=== PATIENT | female | born 1995 | race Caucasian/White ===

== ENCOUNTER 2017-03-03 23:50 | Inpatient (IN) | payer OTHER ==
[~2017-03-03] VITALS: Ht 170.2 cm; Wt 128.3 kg
[~2017-03-03 23:50] MED LIST: PREN-29 PO
[2017-03-03 23:59] VITALS: BP 132/76; PULSE 104; RESP 18
[2017-03-04 00:02] VITALS: Ht 170.2 cm; Wt 128.3 kg
--- NOTE | 2017-03-04 01:00 | RADRPT ---
PROCEDURE: US biophysical profile. CLINICAL INDICATION: Decreased motion. TECHNIQUE: Multiple sonographic images of the uterus were obtained. The images were revi ewed on a PACS workstation. COMPARISON: No prior studies are available for comparison. FINDINGS: There is a single live intrauterine gestation. heart rate is 143 beats per minute. The position is cephalic. The placenta is posterior grade II with no abruption or previa. The JUDI is 11.3 cm. (Normal = 5-20 cm.) Breathing Movement: 2 Gross Body Movement: 2 Tone: 2 Qualitative Amniotic Fluid Volume: 2 TOTAL: 8 IMPRESSION: 1. The biophysical score is 8/8. RPTAT: QQ .Bernabe Wall MD, MD Date Time Electronically viewed and signed by .Bernabe Wall MD, on 03/04/2017 00:59 .R/
[2017-03-04] MEDS ORDERED: OXYTOCIN 30 UNITS/LR 500 ML IV PRN (02:00)
[2017-03-04] MEDS ORDERED: METHYLERGONOVINE 0.2 MG INJ IM PRN (02:00)
[2017-03-04] MEDS ORDERED: LIDOCAINE 1% (MPF) 30 ML INJ INJ PRN (02:00)
[2017-03-04] MEDS ORDERED: LACTATED RINGER'S 1,000 ML IV PRN (02:00)
[2017-03-04] MEDS ORDERED: IBUPROFEN 600 MG TAB PO PRN (02:00)
[2017-03-04] MEDS ORDERED: MISOPROSTOL 200 MCG TAB PR PRN (02:00)
[2017-03-04] MEDS ORDERED: OXYTOCIN 30 UNITS/LR 500 ML IV SCH ×3 (02:00)
[2017-03-04] MEDS ORDERED: BUTORPHANOL 2 MG INJ IV PRN ×2 (02:00)
[2017-03-04] MEDS ORDERED: CARBOPROST 250 MCG INJ IM PRN (02:00)
--- NOTE | 2017-03-04 02:04 | TRIAGE ---
OB Triage Datetime Report Generated by CPN: 03/04/2017 02:04 Datetime: 03/04/2017 01:32 Vaginal Exam Dilatation (cms): 2.0 Effacement (%): 50 Station: -3 Exam By: DR REICHE Datetime: 03/04/2017 01:00 Labor Evaluation Frequency: none Monitor Mode: External Resting Tone [place]: Relaxed Heart Rate FHR Baseline Rate: 145 Monitor Mode: External US FHR Baseline Changes: No Baseline Change Variability: Moderate 6-25 bpm Accelerations: 15X15 Decelerations: None Category: Category I Pain Assessment Pain Scale: 0 Pain Presence: None/Denies Pain Type: N/A Datetime: 03/04/2017 00:26 Stage of : OB Triage Datetime: 03/04/2017 00:08 Assessment Type: Triage Maternal Assessment Level of Consciousness: Fully Conscious DTR's/Clonus: DTRs 2+; No Clonus Headache: Denies Blurred Vision: No Respiratory Effort: Unlabored; Regular Rhythm; Equal Expansion Breath Sounds, Left: Clear and Equal Breath Sounds, Right: Clear and Equal Nausea/Vomiting: Denies RUQ Epigastric Pain: Denies Facial Edema: None Fall Risk Assessment History of Falling: (0) No Secondary Diagnosis: (0) No Ambulatory Aid: (0) Bedrest/Nurse Assist IV Therapy: (0) No Gait: (0) Normal/Bedrest/Immobile Mental Status: (0) Oriented to Own Ability Fall Score: 0 Fall Risk Score Definition: No Risk: No action required Comment: PRESENTED TO TRIAGE C_O DEC.FM. LOW BP AND DIZZINESS. DENIES LEAKING, BLEEDING. PLACED ON EFM. CALL LIGHT WITHIN REACH. Datetime: 03/04/2017 00:06 Time of Arrival: 03/04/2017 23:55 EGA: 39.5 Arrived By: Ambulatory Arrived From: Home Chief Complaint: DECREASED MOVEMENT,LOW BP, DIZZINESS Movement: Decreased Contractions: Denies/Absent Rupture of Membranes: Denies Vaginal Bleeding: None Vaginal Discharge: Denies Recent Sexual Intercouse: Denies Abdominal Trauma: Not Applicable Patient Complaints: None Time Provider Notified: 03/04/2017 00:20 Provider Notified: Initial Plan: EFM, VS, ultrasound for BPP, JUDI if WNL d_c to home Datetime: 03/04/2017 00:04 Membrane Status: Intact Datetime: 03/03/2017 23:56 Labor Evaluation Frequency: NONE Pattern: Normal: <= 5 Contractions in 10 Minutes Resting Tone [place]: Relaxed Heart Rate FHR Baseline Rate: 155 Monitor Mode: External US Comments: PLACED ON EFM
--- NOTE | 2017-03-04 02:14 | HP ---
Date/Time of Note Date/Time of Note DATE: 03/04/17 TIME: 02:04 OB - History Hx of Present Free Text/Dictation 22 y.o. A1 with an IUP at 39w 6d c/o decreased movement. Most importantly the pt's mother had a heart attack a few days ago and is on a ventilator in the ICU at [facility]. The patient and her spouse are visibly upset. They both very much want to have the baby before she gets the news that her mother . The spouse says that the mother is not expected to survive another 48 hours and that the family will not be telling the pt when that occurs until the baby is born. Estimated Due Date: Mar 06, 2017 : 3 Para: 1 Spontaneous : 1 Care: Good Care Ultrasounds: Normal mid trimester US Obstetrical Complications: None Medical Complications: None Other Concerns: PMHx: none. PSHx: none. NKDA. Past Family/Social History * Past Medical, Surgical, Family and Obstetric Histories reviewed from chart. Blood Type: Unknown Rubella: unknown RPR/VDRL: Unknown GBS Status: Negative HBsAG: Unknown OB Admission Exam Vital Signs Vital Signs Vital Signs Date Time Temp Pulse Resp B/P Pulse Ox O2 Delivery O2 Flow Rate FiO2 03/03/17 23:59 99.5 104 18 132/76 Room Air Physical Exam HEENT: WNL Heart: Rhythm Normal Lungs: Clear Abdomen: WNL Extremities: Normal Reflexes: Normal Cervical Dilatation: 2cm Effacement: 50% Station: -3 Membranes: Intact Heart Rate: 150's Accelerations: Accelerations Present Decelerations: No Decelerations Varibility: Moderate Contractions on Admission: None OB Assessment/Plan Reason for admission: induction of labor Plan: Induction Induction Method: per Pitocin Protocol ILANA SALDIVAR MD Mar 04, 2017 02:13
[2017-03-04] MEDS: LACTATED RINGER'S 1,000 ML IV SCH ×3 (03:01→18:32)
[2017-03-04 03:21] LABS: BASOPHILS % 0.2 % (0.0-2.0); EOSINOPHILS % 0.2 % (0.0-7.0); HEMATOCRIT 32.5 % (37.0-47.0); HEMOGLOBIN 10.7 g/dl (12.0-16.0); LYMPHOCYTES # 2.1 10^3/ul (0.8-2.9); LYMPHOCYTES % 16.2 % (15.0-51.0); MEAN CORPUSCULAR HEMOGLOBIN 29.3 pg (29.0-33.0); MEAN CORPUSCULAR HGB CONC 32.9 g/dl (32.0-37.0); MEAN PLATELET VOLUME 9.5 fl (7.4-10.4); MONOCYTE # 0.8 10^3/ul (0.3-0.9); MONOCYTES % 6.1 % (0.0-11.0); NEUTROPHIL # 9.9 10^3/ul (1.6-7.5); NEUTROPHILS % 76.5 % (39.0-77.0); PLATELET COUNT 315 10^3/UL (140-415); RED BLOOD COUNT 3.65 10^6/ul (4.20-5.40)
[2017-03-04 03:47] LABS: INR 0.99; PROTIME 13.1 Sec (12.2-14.2)
[2017-03-04 03:48] LABS: PARTIAL THROMBOPLASTIN TIME 26.1 Sec (25.0-35.0)
[2017-03-04 06:23] LABS: BARBITURATES Negative (NEGATIVE); BENZODIAZEPINES Negative (NEGATIVE); CANNABINOIDS Negative (NEGATIVE); COCAINE Negative (NEGATIVE); OPIATES Negative (NEGATIVE)
[2017-03-04] MEDS ORDERED: FENTAnyl 2MCG/ML-ROPIV 0.2% 100 ML ONE (12:32)
--- NOTE | 2017-03-04 18:09 | RADRPT ---
PROCEDURE: US OB. CLINICAL INDICATION: Size and dates TECHNIQUE: Multiple sonographic images of the pelvis and gravid uterus were obtained. The images were reviewed on a PACS workstation. COMPARISON: No prior studies are available for comparison. FINDINGS: There is a single viable intrauterine gestation. Cardiac activity is present with 156 beats per min ambika. There is a vertex presentation. The placenta is posterior. There is no evidence for an abruption or placenta previa. Measurements were made in order to determine age. The results are as follows: BPD =9.7 cm HC =34 cm AC =35.5 cm FL =7.8 cm Estimated gestational age of approximately 39 weeks and 3 days based on ultrasound measurements. Clinical age: 39 weeks and 4 days. The estimated date of delivery is 03/08/2017, based on ultrasound measurements. The EFW = 3798 g, 71%, based on LMP age. RPTAT: AA IMPRESSION: Single viable intrauterine gestation of approximately 39 weeks and 3 days based on ultrasound measu rements. .Jesus Louis MD, Date Time Electronically viewed and signed by .Jesus Louis MD, MD on 03/04/2017 18:09 .S/
[2017-03-04] MEDS ORDERED: NALOXONE (0.4 MG/ML) INJ IV PRN (19:00)
[2017-03-04] MEDS ORDERED: ONDANSETRON 4 MG INJ IV PRN (19:00)
[2017-03-04] MEDS ORDERED: DIPHENHYDRAMINE 50 MG INJ IV PRN (19:00)
[2017-03-04] MEDS: FENTAnyl 2MCG/ML-ROPIV 0.2% 100 ML BAG EPI SCH (19:27)
[2017-03-04] MEDS ORDERED: AMPICILLIN 2 GM/NS (PMX) 100 ML ONE (19:51)
[2017-03-04] MEDS ORDERED: AMPICILLIN 2 GM/NS (PMX) 100 ML IV ONE (20:00)
[2017-03-05] MEDS: AMPICILLIN 1 GM/NS (PMX) 50 ML IV SCH ×3 (00:10→07:39)
[2017-03-05] MEDS: LACTATED RINGER'S 1,000 ML IV SCH ×2 (02:07→07:22)
[2017-03-05] MEDS: FENTAnyl 2MCG/ML-ROPIV 0.2% 100 ML BAG EPI SCH ×2 (02:08→08:02)
--- NOTE | 2017-03-05 10:04 | LDN ---
Date/Time of Note Date/Time of Note DATE: 03/05/17 TIME: 10:03 Delivery Summary NSD W/O COMPLICATIONS Placenta Delivered: Spontaneously Meconium: Light Perineal laceration: 1 Anesthesia type: Epidural Estimated blood loss: 300 Sponge & Needle done & correct: Yes All needle counts correct: Yes Any foreign bodies felt in the: No Problems: ERIC APARICIO MD Mar 05, 2017 10:04
[2017-03-05] MEDS ORDERED: METHYLERGONOVINE 0.2 MG INJ IM PRN (12:30)
[2017-03-05] MEDS ORDERED: MAGNESIUM HYDROXIDE 30ML CUP PO PRN (12:30)
[2017-03-05] MEDS ORDERED: OXYTOCIN 30 UNITS/LR 500 ML IV PRN (12:30)
[2017-03-05] MEDS ORDERED: CARBOPROST 250 MCG INJ IM PRN (12:30)
[2017-03-05] MEDS ORDERED: WITCH HAZEL/GLYCERIN PAD PR PRN (12:30)
[2017-03-05] MEDS ORDERED: ZOLPIDEM 5 MG TAB PO PRN (12:30)
[2017-03-05] MEDS ORDERED: BENZOCAINE 20% 56 ML SPRAY TOP PRN (12:30)
[2017-03-05] MEDS ORDERED: SENNA/DOCUSATE NA (8.6MG/50MG) TAB PO PRN (12:30)
[2017-03-05] MEDS ORDERED: ACETAMINOPHEN 325 MG TAB PO PRN (12:30)
[2017-03-05] MEDS ORDERED: DIPHENHYDRAMINE 25 MG CAP PO PRN (12:30)
[2017-03-05] MEDS ORDERED: LANOLIN 7 GM TUBE TOP PRN (12:30)
[2017-03-05] MEDS ORDERED: HYDROCODONE/APAP (5/325) TAB PO PRN (12:30)
[2017-03-05] MEDS ORDERED: MISOPROSTOL 200 MCG TAB PR PRN (12:30)
[2017-03-05] MEDS: OXYTOCIN 30 UNITS/LR 500 ML IV SCH ×2 (13:54→17:02)
[2017-03-05] MEDS: IBUPROFEN 800 MG TAB PO SCH ×2 (13:56→19:40)
[2017-03-05 16:00] VITALS: BP 120/77; RESP 18
[2017-03-05] MEDS: LACTATED RINGER'S 1,000 ML IV* SCH ×2 (16:28→21:57)
[2017-03-05 16:30] VITALS: BP 118/70; PULSE 78; RESP 18
[2017-03-05 20:00] VITALS: BP 108/69; PULSE 94; RESP 20
[2017-03-06] MEDS: IBUPROFEN 800 MG TAB PO SCH ×5 (00:57→23:49)
[2017-03-06] MEDS: LACTATED RINGER'S 1,000 ML IV* SCH (04:21)
[2017-03-06 04:45] VITALS: BP 88/75; PULSE 80; RESP 20
[2017-03-06 08:00] VITALS: BP 107/65; PULSE 77
--- NOTE | 2017-03-06 10:47 | DS ---
Date/Time of Note Date/Time of Note DATE: 03/06/17 TIME: 10:45 Discharge Summary Admission/Discharge Info Admit Date/Time Mar 04, 2017 at 02:03 Discharge Date/Time Discharge Diagnosis TERM PREG Patient Condition: Stable Hospital Course UNREMARKABLE Home Meds Reported Medications Vit-Fe Fumarate-FA* (Andrea Tablet*) 1 Tab Tablet, 1 TAB PO DAILY, TAB 03/17/14 Primary Care Provider Care Physician No Primary ERIC APARICIO MD Mar 06, 2017 10:47
[2017-03-06 11:33] LABS: BASOPHILS % 0.3 % (0.0-2.0); EOSINOPHILS % 0.3 % (0.0-7.0); HEMATOCRIT 31.6 % (37.0-47.0); HEMOGLOBIN 10.4 g/dl (12.0-16.0); LYMPHOCYTES # 1.6 10^3/ul (0.8-2.9); LYMPHOCYTES % 10.6 % (15.0-51.0); MEAN CORPUSCULAR HEMOGLOBIN 29.7 pg (29.0-33.0); MEAN CORPUSCULAR HGB CONC 32.9 g/dl (32.0-37.0); MEAN CORPUSCULAR VOLUME 90.3 fl (82.0-101.0); MEAN PLATELET VOLUME 9.8 fl (7.4-10.4); MONOCYTE # 0.7 10^3/ul (0.3-0.9); MONOCYTES % 4.8 % (0.0-11.0); NEUTROPHIL # 12.9 10^3/ul (1.6-7.5); NEUTROPHILS % 83.2 % (39.0-77.0); PLATELET COUNT 298 10^3/UL (140-415); WHITE BLOOD COUNT 15.5 10^3/ul (4.8-10.8)
[2017-03-06 16:22] VITALS: BP 110/77; PULSE 82; RESP 20
[2017-03-06 20:00] VITALS: BP 108/62; PULSE 68; RESP 20
[2017-03-07 04:56] VITALS: BP 102/59; PULSE 66; RESP 20
[2017-03-07] MEDS: IBUPROFEN 800 MG TAB PO SCH ×2 (06:45→11:30)
[2017-03-07] MEDS ORDERED: VARICELLA VACCINE LIVE/PF 1,350 UNIT/0.5 ML ML SC* ONE (09:00)
[2017-03-07] MEDS ORDERED: DIPHTH/TET/ACEL PERTUSS (ADULT) 0.5 ML VIAL IM* ONE (09:00)
[2017-03-07] MEDS ORDERED: MEASLES,MUMPS,RUBELLA VACCINE INJ SC* ONE (09:00)
== END 2017-03-07 12:45 | disposition home or self-care (01) | DRG 775 ==
LOC: OBT 23:50 → L-D 23:52 → OBT 03-04 01:56 → L-D 03-04 02:03 → PP1 03-05 16:05
PROVIDERS: ADMIT Obstetrics & Gynecology; ATTEND Obstetrics & Gynecology
PROC: 10E0XZZ Delivery of Products of Conception, External Approach (ICD-10-PCS; principal; 2017-03-05)
PROC: 0HQ9XZZ Repair Perineum Skin, External Approach (ICD-10-PCS; 2017-03-05)
PROC: 3E0P3VZ Introduction of Hormone into Female Reproductive, Percutaneous Approach (ICD-10-PCS; 2017-03-05)
DX: O99.214 Obesity complicating childbirth (principal); Z68.41 Body mass index [BMI] 40.0-44.9, adult; E66.01 Morbid (severe) obesity due to excess calories; O70.0 First degree perineal laceration during delivery; Z3A.39 39 weeks gestation of pregnancy; Z37.0 Single live birth
CPT/HCPCS: 62319; 76815; 76818; 80307; 85025; 85610; 85730; 86592; 86900; 86901; 87340; 90715; 90716; G0463; J0290; J1200; J2590; J3010; J7120

== ENCOUNTER 2018-07-24 19:42 | Emergency (ER) | payer MEDICAID, OTHER ==
[~2018-07-24] VITALS: Ht 170.2 cm; Wt 124.9 kg
[2018-07-24 19:51] VITALS: Ht 170.2 cm; Wt 124.9 kg
--- NOTE | 2018-07-24 23:19 | ERD ---
ER Documentation Chief Complaint Chief Complaint C/O LT ARM PAIN X2 DAYS, 37WEEKS HPI The patient is a 23-year-old female, presenting to the ER with intermittent left arm pain with neck discomfort for 2 days, has similar symptoms previously whenever she feels anxious. She denies syncope, near syncope, neck pain, pain with vomiting/radiation/exertion/diaphoresis, dyspnea, abdominal pain, vomiting, dysuria, diarrhea. She does not smoke nor drink, 3 para 2, 37 weeks Medical history: Anxiety Past surgical history: None ROS All systems reviewed and are negative except as per history of present illness. Medications Home Meds Active Scripts Acetaminophen* (Tylenol*) 325 Mg Tablet, 2 TAB PO Q6 PRN for PAIN AND OR ELEVATED TEMP, #20 TAB Prov:FEDE ZAPATA MD 07/25/18 Reported Medications Vit-Fe Fumarate-FA* (Andrea Tablet*) 1 Tab Tablet, 1 TAB PO DAILY, TAB 03/17/14 Allergies Allergies: Coded Allergies: No Known Allergy (Unverified , 07/25/18) PMhx/Soc Hx Alcohol Use: No Hx Substance Use: No Hx Tobacco Use: No Physical Exam Vitals Vital Signs Date Temp Pulse Resp B/P (MAP) Pulse Ox O2 O2 Flow FiO2 Time Delivery Rate 07/25/18 90 20 135/65 100 Room Air 01:03 (88) 07/24/18 95 22 127/69 100 Room Air 23:36 (88) 07/24/18 98.5 102 19 139/96 99 19:51 (110) Physical Exam Const: No acute distress. Head: Atraumatic. Eyes: Normal Conjunctiva. ENT: Normal External Ears, Nose and Mouth. Neck: Full range of motion. No meningismus. Resp: Clear to auscultation bilaterally. Cardio: Regular rate and rhythm. Abd: Soft, non distended, normal bowel sounds, non tender. Skin: No petechiae or rashes. Back: No midline or flank tenderness. Ext: No cyanosis, or edema. Neur: Awake and alert. No focal deficit Psych: Normal Mood and Affect. Results 24 hrs Current Medications Medications Dose Sig/Vanda Start Time Status Last (Trade) Ordered Route PRN Stop Time Admin Dose Reason Admin 650 mg ONCE ONCE 07/25/18 DC 07/25/18 Acetaminophen PO 01:00 00:58 (Tylenol 07/25/18 01:01 Tab) Procedures/MDM EKG: Read by emergency physician Rate/Rhythm: Normal Sinus Rhythm 99 beats/min QRS, ST, T-waves: No ST elevation, no T inversion Impression: Normal EKG MEDICAL MAKING DECISION: The patient is a 23-year-old female, presenting with acute anxiety attack, was treated with Tylenol for her discomfort with good response, is stable for outpatient follow-up The differential diagnoses considered include but are not limited to anxiety attack, panic attack, stress, cervical radiculopathy Departure Diagnosis: Primary Impression: Anxiety Condition: Good Comments She was discharged with Tylenol and cleared to go to L&D I discussed the findings with the patient. I advised the patient to follow-up with the primary physician in about 2-3 days, sooner if needed and return if any concern. Disclaimer: Inadvertent spelling and grammatical errors are likely due to EHR/dictation software use and do not reflect on the overall quality of patient care. Also, please note that the electronic time recorded on this note does not necessarily reflect the actual time of the patient encounter. The patient's blood pressure was elevated (>120/80) but appears stable without evidence of hypertension emergency or urgency. The patient was counseled about the risks of hypertension and urged to pursue outpatient monitoring and therapy within a week with their primary care physician. FEDE ZAPATA MD Jul 24, 2018 23:19
[2018-07-25] MEDS ORDERED: ACET325T33 PO (00:52)
[2018-07-25] MEDS ORDERED: ACETAMINOPHEN 325 MG TAB PO ONE (01:00)
[2018-07-25 01:03] VITALS: BP 135/65; PULSE 90; RESP 20
== END 2018-07-25 01:05 | disposition home or self-care (01) ==
LOC: E/R 19:42
DX: O99.343 Other mental disorders complicating pregnancy, third trimester (principal); F41.9 Anxiety disorder, unspecified; M54.2 Cervicalgia; Z3A.37 37 weeks gestation of pregnancy
CPT/HCPCS: 93005; Z7502; Z7610

== ENCOUNTER 2018-07-25 01:05 | Outpatient (CLI) | payer MEDICAID ==
[~2018-07-25] VITALS: Ht 170.2 cm; Wt 135.9 kg
[~2018-07-25 01:05] MED LIST changes: +ACET325T33 PO
[2018-07-25 01:31] VITALS: BP 111/70; PULSE 88; RESP 16
--- NOTE | 2018-07-25 04:23 | TRIAGE ---
OB Triage Datetime Report Generated by CPN: 07/25/2018 04:23 Datetime: 07/25/2018 03:30 Stage of : OB Triage Datetime: 07/25/2018 03:00 Stage of : OB Triage Heart Rate FHR Baseline Rate: 135 Monitor Mode: External US FHR Baseline Changes: No Baseline Change Variability: Moderate 6-25 bpm Accelerations: 15X15 Decelerations: None Category: Category I Datetime: 07/25/2018 02:45 Labor Evaluation Monitor Mode: External Quality: Mild Pattern: Normal: <= 5 Contractions in 10 Minutes Resting Tone [place]: Relaxed Heart Rate FHR Baseline Rate: 130 Monitor Mode: External US FHR Baseline Changes: No Baseline Change Variability: Moderate 6-25 bpm Accelerations: 15X15 Decelerations: None Category: Category I Pain Assessment Pain Scale: 2 Pain Presence: Intermittent Pain Type: Cramping Pain Location: Abdomen Datetime: 07/25/2018 02:09 Stage of : OB Triage Quality: Mild Pattern: Normal: <= 5 Contractions in 10 Minutes Resting Tone [place]: Relaxed Heart Rate FHR Baseline Rate: 140 Monitor Mode: External US FHR Baseline Changes: No Baseline Change Variability: Moderate 6-25 bpm Accelerations: 15X15 Decelerations: None Category: Category I Datetime: 07/25/2018 01:39 Stage of : OB Triage Labor Evaluation Monitor Mode: External Quality: Mild Pattern: Normal: <= 5 Contractions in 10 Minutes Resting Tone [place]: Relaxed Heart Rate FHR Baseline Rate: 140 Monitor Mode: External US FHR Baseline Changes: No Baseline Change Variability: Moderate 6-25 bpm Accelerations: 15X15 Decelerations: None Category: Category I Datetime: 07/25/2018 01:24 Time of Arrival: 07/25/2018 01:05 EGA: 37.4 Arrived By: Wheelchair Arrived From: Emergency Dept Chief Complaint: sent from ER where evaluated for chest pain and anxiety. States occas uc Movement: Present Contractions: Occasional Rupture of Membranes: Denies Vaginal Bleeding: None Vaginal Discharge: Denies Recent Sexual Intercouse: Denies Abdominal Trauma: Not Applicable Patient Complaints: Cramping; Other Additional Patient Complaints: Pt ststes she was given Rx today for UTI Time Provider Notified: 07/25/2018 02:10 Provider Notified: Dr Galdamez Initial Plan: EFM Datetime: 07/25/2018 01:22 Stage of : OB Triage Maternal Assessment Level of Consciousness: Fully Conscious Headache: Denies Blurred Vision: No Respiratory Effort: Unlabored Nausea/Vomiting: Denies RUQ Epigastric Pain: Denies Facial Edema: None Labor Evaluation Monitor Mode: External Resting Tone [place]: Relaxed Monitor Mode: External US Comments: FHT 150 Pain Assessment Pain Scale: 2 Pain Presence: Intermittent Pain Type: Cramping Pain Location: Abdomen
--- NOTE | 2018-07-25 12:39 | PN ---
Triage Information Date/Time July 25, 2018 Reason for visit: Anxiety and chest pain Weeks of Gestation 37 weeks and 4 days /Para 4 para 2 Diabetes: none Hypertention: none Additional information 23-year-old with IUP at 37 weeks and 4 days presented with complaint of chest pain and anxiety. Reports history of anxiety and panic attack in the past. She denies any obstetrical problem. She denies any leaking of fluid, vaginal bleeding decreased movement. She had been seen in the emergency room and had been cleared already and was sent to triage for obstetrical evaluation. Patient denies any complaint at this time. Objective Vital Signs Date Temp Pulse Resp B/P (MAP) Pulse Ox O2 O2 Flow FiO2 Time Delivery Rate 07/25/18 98.0 88 16 111/70 Room Air 01:31 (84) Heart Rate: 130's Heart Rate Comments Category 1 Contractions: None Exam General appearance: Alert and oriented x4 does not appear to be in acute distress Abdomen: Soft, gravid, fundal height consider gestational age NST: Category 1 normal oxygen saturation room air, normal pulse rate Lungs: Clear to auscultation bilaterally CV: RRR Results/Medications Imaging Results ROCEDURE: US OB biophysical profile. CLINICAL INDICATION: Contractions TECHNIQUE: Multiple sonographic images of the pelvis were obtained. The images were reviewed on a PACS workstation. COMPARISON: FINDINGS: Single live intrauterine gestation. JUDI = 13.75 cm. Cardiac activity is present with 132 beats per minute. Cephalic presentation. Placental location is posterior. No evidence of previa or abruption. Biophysical profile as follows: movement 2/2 tone 2/2 breathing 2/2 JUDI 2/2 Total 01/09 IMPRESSION: Biophysical profile 01/09. Disposition: Discharge Assessment/Plan IUP at 37 weeks and 4 days Anxiety attack chest pain,. Likely chest pain related to anxiety. Reports similar episodes in the past. Had been cleared by ED no obstetrical issue at this point testing reassuring Patient will be discharged home Labor precautions kick count and follow-up with primary OB office within 48 hours after discharge from the hospital discussed with the patient Patient verbalized understanding all questions were answered to patient's best satisfaction LITA REAL MD Jul 25, 2018 12:39
== END 2018-07-25 03:30 | disposition home or self-care (01) ==
LOC: L-D 01:05 → OBT 01:05
PROVIDERS: ATTEND Obstetrics & Gynecology
DX: O99.343 Other mental disorders complicating pregnancy, third trimester (principal); F41.9 Anxiety disorder, unspecified; Z3A.37 37 weeks gestation of pregnancy
CPT/HCPCS: 76818; Z7500; G0463

== ENCOUNTER 2018-07-30 19:33 | Outpatient (CLI) | payer MEDICAID ==
[~2018-07-30] VITALS: Ht 170.2 cm; Wt 134.7 kg
[2018-07-30 19:40] VITALS: Ht 170.2 cm; Wt 134.7 kg
[2018-07-30 19:51] VITALS: BP 118/68; PULSE 99; RESP 18
[2018-07-30] MEDS ORDERED: NITR-58 PO (19:53)
[2018-07-30] MEDS ORDERED: AL HYDROX/MG HYDROX/SIMETH 30 ML CUP PO ONE (20:30)
--- NOTE | 2018-07-30 22:53 | PN ---
Triage Information Date/Time Jul 30, 2018 Reason for visit: chest pain Weeks of Gestation 38w 2d /Para 4/2 Diabetes: none Hypertention: none Additional information PMHx: UTI. Anxiety. Panic attacks. GERD. Obesity. PSHx: none. NKDA. Objective Vital Signs Date Temp Pulse Resp B/P (MAP) Pulse Ox O2 O2 Flow FiO2 Time Delivery Rate 07/30/18 98.6 99 18 118/68 Room Air 19:51 (85) Heart Rate: 140's Heart Rate Comments Accels to 180 bpm. No decels. Contractions: None Results/Medications Result Diagram: 07/30/18203907/30/182039 Results 24 hrs Laboratory Tests Test 07/30/18 20:00 07/30/18 20:40 Urine Color YELLOW Urine Clarity CLEAR Urine pH 7.0 Urine Specific [place] 1.009 Urine Ketones NEGATIVE Urine Nitrite NEGATIVE Urine Bilirubin NEGATIVE Urine Urobilinogen NEGATIVE Urine Leukocyte Esterase TRACE A Urine Microscopic RBC 1 Urine Microscopic WBC 2 Urine Squamous Epithelial Cells FEW Urine Bacteria FEW A Urine Hemoglobin NEGATIVE Urine Glucose NEGATIVE Urine Total Protein NEGATIVE White Blood Count 11.8 #H Red Blood Count 3.75 L Hemoglobin 10.9 L Hematocrit 32.9 L Mean Corpuscular Volume 87.7 Mean Corpuscular Hemoglobin 29.1 Mean Corpuscular Hemoglobin Concent 33.1 Red Cell Distribution Width 14.5 Platelet Count 315 Mean Platelet Volume 9.6 Immature Granulocytes % 0.700 H Neutrophils % 76.7 Lymphocytes % 16.1 Monocytes % 6.0 Eosinophils % 0.3 Basophils % 0.2 Nucleated Red Blood Cells % 0.0 Immature Granulocytes # 0.080 H Neutrophils # 9.1 H Lymphocytes # 1.9 Monocytes # 0.7 Eosinophils # 0.0 Basophils # 0.0 Nucleated Red Blood Cells # 0.0 Sodium Level 137 Potassium Level 3.8 Chloride Level 108 Carbon Dioxide Level 23 Anion Gap 6 Blood Urea Nitrogen 6 L Creatinine 0.33 L Est Glomerular Filtrat Rate mL/min > 60 Glucose Level 76 Calcium Level 9.4 Total Bilirubin 0.0 L Direct Bilirubin 0.00 Indirect Bilirubin 0.0 Aspartate Amino Transf (AST/SGOT) 17 Alanine Aminotransferase (ALT/SGPT) 17 Alkaline Phosphatase 107 Total Protein 6.5 Albumin 3.5 Globulin 3.00 Albumin/Globulin Ratio 1.16 Imaging Results BPP 8/8 with an JUDI of 14.3 cm. VTX. Disposition: Discharge Assessment/Plan A: IUP at 38w 2d. Anxiety/panic disorder. Chest pain. GERD. P: As baby is cleared, will send pt down to the ER for the chest pain for evaluation. Pt has an appt with Dr Elizabeth tomorrow and am encouraging the pt to consider getting induced at 39 weeks as it will help to decrease her anxiety. Pt's mother of a heart related problem so pt is feeling very paranoid right now. ILANA SALDIVAR MD Jul 30, 2018 22:53
--- NOTE | 2018-07-30 23:25 | TRIAGE ---
OB Triage Datetime Report Generated by CPN: 07/30/2018 23:25 Datetime: 07/30/2018 22:42 Stage of : OB Triage Datetime: 07/30/2018 22:12 Stage of : OB Triage Labor Evaluation Frequency: occa Monitor Mode: External Duration (sec)2399: 30-40 Quality: Mild Pattern: Normal: <= 5 Contractions in 10 Minutes Resting Tone [place]: Relaxed Heart Rate FHR Baseline Rate: 135 Monitor Mode: External US Variability: Moderate 6-25 bpm Accelerations: 15X15 Decelerations: None Category: Category I Datetime: 07/30/2018 20:56 Pain Assessment Pain Scale: 0 Pain Presence: None/Denies Pain Type: N/A Pain Assessment Comments: PT REPORTED FEELING RELIEF FROM CHEST PAIN Datetime: 07/30/2018 20:55 Stage of : OB Triage Labor Evaluation Frequency: X0 Monitor Mode: External Duration (sec)2399: X0 Pattern: Normal: <= 5 Contractions in 10 Minutes Resting Tone [place]: Relaxed Heart Rate FHR Baseline Rate: 145 Monitor Mode: External US Variability: Moderate 6-25 bpm Accelerations: 15X15 Decelerations: None Category: Category I Datetime: 07/30/2018 20:05 Labor Evaluation Frequency: X0 Monitor Mode: External Duration (sec)2399: X0 Pattern: Normal: <= 5 Contractions in 10 Minutes Resting Tone [place]: Relaxed Contraction Comments: MILD IRRITABILITY NOTED Heart Rate FHR Baseline Rate: 160 Monitor Mode: External US Variability: Moderate 6-25 bpm Accelerations: 15X15 Decelerations: None Category: Category I Datetime: 07/30/2018 20:00 Stage of : OB Triage Maternal Assessment Level of Consciousness: Fully Conscious DTR's/Clonus: DTRs 2+; No Clonus Headache: Denies Blurred Vision: No Respiratory Effort: Unlabored; Regular Rhythm; Equal Expansion Breath Sounds, Left: Clear and Equal Breath Sounds, Right: Clear and Equal Nausea/Vomiting: Denies RUQ Epigastric Pain: Denies Lower Extremities Edema: None Degree: None Upper Extremities Edema: None Degree: None Facial Edema: None Temperature Route: Oral Fall Risk Assessment History of Falling: (0) No Secondary Diagnosis: (0) No Ambulatory Aid: (0) Bedrest/Nurse Assist IV Therapy: (0) No Gait: (0) Normal/Bedrest/Immobile Mental Status: (0) Oriented to Own Ability Fall Score: 0 Fall Risk Score Definition: No Risk: No action required Pain Assessment Pain Scale: 5 Pain Presence: Constant Pain Type: Dull; Pressure Pain Location: Back (Annotations: BILATERAL CHEST PAIN) Pain Goal: 0 Pain Relief Measures: Comfort Measures Datetime: 07/30/2018 19:57 Time of Arrival: 07/30/2018 19:30 EGA: 38.2 Arrived By: Wheelchair Chief Complaint: CHEST PAIN/BACK PAIN H/O ANXIETY AND PANIC ATTACKS DX WITH UTI -MACROBID Movement: Present Contractions: Denies/Absent Rupture of Membranes: Denies Vaginal Bleeding: None Vaginal Discharge: Denies Recent Sexual Intercouse: Denies Abdominal Trauma: Not Applicable Patient Complaints: Other Time Provider Notified: 07/30/2018 20:13 Provider Notified: DR. MA Initial Plan: EFM, CALL OB Datetime: 07/30/2018 19:44 Monitor Mode: External Contraction Comments: APPLIED Monitor Mode: External US Comments: APPLIED; PT ACKNOWEDGES MOVEMENT. Datetime: 07/25/2018 01:24 EGA: 37.4
[2018-07-31] MEDS ORDERED: HYDR-4011 PO (02:54)
== END 2018-07-30 22:50 | disposition home or self-care (01) ==
LOC: OBT 19:33 → L-D 19:36 → OBT 22:50
PROVIDERS: ATTEND Obstetrics & Gynecology
DX: O99.343 Other mental disorders complicating pregnancy, third trimester (principal); F41.9 Anxiety disorder, unspecified; O26.893 Other specified pregnancy related conditions, third trimester; K21.9 Gastro-esophageal reflux disease without esophagitis; R07.9 Chest pain, unspecified; O99.213 Obesity complicating pregnancy, third trimester; E66.9 Obesity, unspecified; Z87.440 Personal history of urinary (tract) infections; Z3A.38 38 weeks gestation of pregnancy
CPT/HCPCS: 76818; 80053; 81001; 85025; Z7500; Z7610; G0463

== ENCOUNTER 2018-07-30 22:53 | Emergency (ER) | payer MEDICAID ==
[~2018-07-30] VITALS: Wt 122.0 kg
[~2018-07-30 22:53] MED LIST changes: +NITR-58 PO
[2018-07-31] MEDS ORDERED: HYDR-4011 PO (02:54)
[2018-07-31 02:58] VITALS: BP 112/88; PULSE 102; RESP 18
--- NOTE | 2018-07-31 02:59 | ERD ---
ER Documentation Chief Complaint Chief Complaint CP, SEEN HERE RECENTLY FOR SAME COMPLAINT HPI This is a pleasant 23-year-old female who is 38 weeks who is complaining of chest pain located at the left lateral chest as well as the left costosternal margin in the upper ribs. The patient states she has had this for about a week now. 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 She has no shortness of breath no cough no dizziness no palpitations no near syncope no vaginal bleeding or abdominal cramps. The patient just came down from labor and delivery after monitoring was satisfactory ROS All systems reviewed and are negative except as per history of present illness. Medications Home Meds Active Scripts Hydrocodone/Acetaminophen ([place] 5-325 Tablet) 1 Each Tablet, 1 TAB PO Q6H PRN for PAIN, #7 TAB Prov:JOSE OG DO 07/31/18 Reported Medications Nitrofurantoin Monohyd Macrocr* (Macrobid*) 100 Mg Capsr, 100 MG PO BID, CAP 07/30/18 Vit-Fe Fumarate-FA* (Andrea Tablet*) 1 Tab Tablet, 1 TAB PO DAILY, TAB 03/17/14 Discontinued Scripts Acetaminophen* (Tylenol*) 325 Mg Tablet, 2 TAB PO Q6 PRN for PAIN AND OR ELEVATED TEMP, #20 TAB Prov:FEDE ZAPATA MD 07/25/18 Allergies Allergies: Coded Allergies: No Known Allergy (Unverified , 07/30/18) PMhx/Soc Hx Alcohol Use: No Hx Substance Use: No Hx Tobacco Use: No FmHx Family History: No coronary disease Physical Exam Vitals Vital Signs Date Temp Pulse Resp B/P (MAP) Pulse Ox O2 O2 Flow FiO2 Time Delivery Rate 07/30/18 99.0 97 20 144/75 97 23:03 (98) Physical Exam Const: Well-developed, well-nourished Head: Atraumatic, normocephalic Eyes: Normal Conjunctiva, PERRLA, EOMI, normal sclera, no nystagmus ENT: Normal External Ears, Nose and Mouth, moist mucus membranes. Neck: Full range of motion. No meningismus, no lymphadenopathy. Resp: Clear to auscultation bilaterally, no wheezing, rhonchi, rales Cardio: Regular rate and rhythm, no murmurs, S1 S2 present, the upper 3 ribs on the left costosternal margin is tender and reproducible pain. The pain is reproducible with range of motion of trunk Abd: Soft, non tender x 4, non distended. Normal bowel sounds, no guarding or rebound, no pulsitile abdominal masses or bruits Skin: No petechiae or rashes, no ecchymosis , no maculopapular rash Back: No midline or flank tenderness Ext: No cyanosis, or edema, FROM x 4, normal inspection, neurovascularly intact x 4 Neur: Awake and alert, STR 5/5 x 4, sensation intact x 4, no focal findings, cerebellum intact Psych: Normal Mood and Affect Results 24 hrs Current Medications Medications Dose Sig/Vanda Start Time Status Last (Trade) Ordered Route PRN Stop Time Admin Dose Reason Admin 1 tab ONCE ONCE 07/31/18 Acetaminophen PO 03:00 / 07/31/18 03:01 Hydrocodone Bitart ([place] (5/325)) Procedures/MDM EKG: Rate/Rhythm: Sinus tachycardia heart rate 104 QRS, ST, QT: NORMAL MO, QRS, QT] Impression: Abnormal EKG The patient's pain is musculoskeletal in nature, she has reproducible pain and she is very tender at the costosternal margin Departure Diagnosis: Primary Impression: Costochondritis Condition: Stable Patient Instructions: CostochondrJOSE House DO Jul 31, 2018 02:59
[2018-07-31] MEDS ORDERED: HYDROCODONE/APAP (5/325) TAB PO ONE (03:00)
== END 2018-07-31 03:04 | disposition home or self-care (01) ==
LOC: E/R 22:53
DX: O99.89 Other specified diseases and conditions complicating pregnancy, childbirth and the puerperium (principal); M94.0 Chondrocostal junction syndrome [Tietze]; Z3A.38 38 weeks gestation of pregnancy
CPT/HCPCS: Z7502; Z7610; 93005

== ENCOUNTER 2018-08-12 09:24 | Outpatient (CLI) | payer MEDICAID ==
[~2018-08-12] VITALS: Ht 170.2 cm; Wt 135.3 kg
[~2018-08-12 09:24] MED LIST changes: -ACET325T33 PO; +HYDR-4011 PO
[2018-08-12 09:38] VITALS: Ht 170.2 cm; Wt 135.3 kg
[2018-08-12 09:39] VITALS: BP 117/69; PULSE 117; RESP 18
--- NOTE | 2018-08-12 13:34 | PN ---
Triage Information Date/Time Reason for visit: post date Weeks of Gestation 40 weeks and 1 day /Para Diabetes: none Hypertention: none Objective Vital Signs Date Temp Pulse Resp B/P (MAP) Pulse Ox O2 O2 Flow FiO2 Time Delivery Rate 08/12/18 98.7 117 18 117/69 09:39 (85) Heart Rate: 130's Heart Rate Comments Reactive Exam Cervix closed Results/Medications Imaging Results BPP 01/09 Disposition: Discharge Assessment/Plan Patient is given the option of induction of labor. Patient would like to get induced on 08/13/2018. SAMARA MA MD Aug 12, 2018 13:34
--- NOTE | 2018-08-12 13:52 | TRIAGE ---
OB Triage Datetime Report Generated by CPN: 08/12/2018 13:51 Datetime: 08/12/2018 12:30 Stage of : OB Triage Maternal Assessment Level of Consciousness: Fully Conscious Labor Evaluation Frequency: NONE Monitor Mode: External Resting Tone Aspers: Relaxed Heart Rate FHR Baseline Rate: 135 Monitor Mode: External US FHR Baseline Changes: Return to Previous Baseline Variability: Moderate 6-25 bpm Accelerations: 15X15 Decelerations: None Category: Category I Pain Assessment Pain Scale: 0 Pain Goal: 3 Vaginal Exam Membrane Status: Intact Vaginal Bleeding: None Datetime: 08/12/2018 11:30 Stage of : OB Triage Maternal Assessment Level of Consciousness: Fully Conscious Labor Evaluation Frequency: 1UC/HR Monitor Mode: External Duration (sec)2399: 80 Quality: Mild Resting Tone Aspers: Relaxed Heart Rate FHR Baseline Rate: 135 Monitor Mode: External US FHR Baseline Changes: Return to Previous Baseline Variability: Moderate 6-25 bpm Accelerations: 15X15 Decelerations: None Category: Category I Pain Assessment Pain Scale: 0 Pain Goal: 3 Vaginal Exam Membrane Status: Intact Vaginal Bleeding: None Datetime: 08/12/2018 10:30 Stage of : OB Triage Maternal Assessment Level of Consciousness: Fully Conscious Labor Evaluation Frequency: NONE Monitor Mode: External Resting Tone Aspers: Relaxed Heart Rate FHR Baseline Rate: 155 Monitor Mode: External US FHR Baseline Changes: Tachycardia Variability: Moderate 6-25 bpm Accelerations: 15X15 Decelerations: None Category: Category I Pain Assessment Pain Scale: 0 Pain Goal: 3 Vaginal Exam Membrane Status: Intact Vaginal Bleeding: None Datetime: 08/12/2018 10:17 Comments: EFM OFF FOR BEDSIDE U/S. Datetime: 08/12/2018 09:35 Assessment Type: Triage Maternal Assessment Level of Consciousness: Fully Conscious DTR's/Clonus: DTRs 2+; No Clonus Headache: Denies Blurred Vision: No Respiratory Effort: Unlabored; Regular Rhythm; Equal Expansion Breath Sounds, Left: Clear and Equal Breath Sounds, Right: Clear and Equal Nausea/Vomiting: Denies RUQ Epigastric Pain: Denies Lower Extremities Edema: None Degree: None Upper Extremities Edema: None Degree: None Facial Edema: None Fall Risk Assessment History of Falling: (0) No Secondary Diagnosis: (0) No Ambulatory Aid: (0) Bedrest/Nurse Assist IV Therapy: (0) No Gait: (0) Normal/Bedrest/Immobile Mental Status: (0) Oriented to Own Ability Fall Score: 0 Fall Risk Score Definition: No Risk: No action required Datetime: 08/12/2018 09:34 Time of Arrival: 08/12/2018 09:20 EGA: 40.1 Arrived By: Ambulatory Arrived From: Home Chief Complaint: PT. HERE FOR NST/BPP/EFW Movement: Present Contractions: Denies/Absent Rupture of Membranes: Denies Vaginal Bleeding: None Vaginal Discharge: Denies Recent Sexual Intercouse: Denies Abdominal Trauma: Not Applicable Patient Complaints: None Time Provider Notified: 08/12/2018 09:47 Provider Notified: DELGUI Initial Plan: NST/BPP/EFW Datetime: 08/12/2018 09:31 Monitor Mode: External Monitor Mode: External US Datetime: 07/30/2018 20:00 Fall Score: 0 Fall Risk Score Definition: No Risk: No action required Datetime: 07/30/2018 19:57 EGA: 38.2 Datetime: 07/25/2018 01:24 EGA: 37.4
== END 2018-08-12 13:46 | disposition home or self-care (01) ==
LOC: OBT 09:24 → L-D 09:26 → OBT 13:46
PROVIDERS: ATTEND Obstetrics & Gynecology
DX: O48.0 Post-term pregnancy (principal); Z3A.40 40 weeks gestation of pregnancy
CPT/HCPCS: 76815; 76818; Z7500; G0463

== ENCOUNTER 2018-08-13 10:00 | Inpatient (IN) | payer MEDICAID ==
[~2018-08-13] VITALS: Ht 167.6 cm; Wt 133.6 kg
[~2018-08-13 10:00] MED LIST changes: -HYDR-4011 PO; -NITR-58 PO
[2018-08-13] MEDS ORDERED: MISOPROSTOL 200 MCG TAB PR PRN (11:00)
[2018-08-13] MEDS ORDERED: IBUPROFEN 600 MG TAB PO PRN (11:00)
[2018-08-13] MEDS ORDERED: LIDOCAINE 1% (MPF) 30 ML INJ INJ PRN (11:00)
[2018-08-13] MEDS ORDERED: OXYTOCIN 30 UNITS/LR 500 ML IV PRN (11:00)
[2018-08-13] MEDS ORDERED: BUTORPHANOL 1 MG INJ IV PRN (11:00)
[2018-08-13] MEDS ORDERED: CARBOPROST 250 MCG INJ IM PRN (11:00)
[2018-08-13] MEDS ORDERED: METHYLERGONOVINE 0.2 MG INJ IM PRN (11:00)
[2018-08-13] MEDS ORDERED: BUTORPHANOL 2 MG INJ IV PRN (11:00)
[2018-08-13] MEDS ORDERED: OXYTOCIN 30 UNITS/LR 500 ML IV SCH ×2 (11:00)
[2018-08-13 11:34] VITALS: Ht 167.6 cm; Wt 133.6 kg
[2018-08-13 11:37] VITALS: BP 125/67; PULSE 98; RESP 18
[2018-08-13] MEDS: MISOPROSTOL 50 MCG CAPSULE PO SCH ×3 (13:26→22:05)
[2018-08-13] MEDS: LACTATED RINGER'S 1,000 ML IV SCH ×2 (13:26→19:21)
--- NOTE | 2018-08-13 23:35 | HP ---
Date/Time of Note Date/Time of Note DATE: 08/13/18 TIME: 23:31 OB - History Hx of Present Chief Complaint: induction of labor Estimated Due Date: Aug 11, 2018 : 4 Para: 2 Spontaneous : 1 Therapeutic : 0 Care: Good Care Ultrasounds: Normal mid trimester US Obstetrical Complications: None Medical Complications: None Past Family/Social History * Past Medical, Surgical, Family and Obstetric Histories reviewed from chart. GBS Status: Negative OB Admission Exam Vital Signs Vital Signs Vital Signs Date Temp Pulse Resp B/P (MAP) Pulse Ox O2 O2 Flow FiO2 Time Delivery Rate 08/13/18 98.3 98 18 125/67 97 11:37 (86) Physical Exam HEENT: WNL Heart: Rhythm Normal Lungs: Clear, Equal Abdomen: WNL Extremities: Normal Reflexes: Normal Cervical Dilatation: 1cm Effacement: 50% Station: -2 Membranes: Intact Heart Rate: 120's Accelerations: Accelerations Present Decelerations: No Decelerations Varibility: Moderate Last 72 hours Lab Results CBC & BMP 08/13/18 11:25 OB Assessment/Plan Reason for admission: induction of labor Plan: Induction Induction Method: per Misoprostol Protocol SAMARA MA MD Aug 13, 2018 23:35
[2018-08-14] MEDS: MISOPROSTOL 50 MCG CAPSULE PO SCH ×2 (02:02→06:01)
[2018-08-14] MEDS: LACTATED RINGER'S 1,000 ML IV SCH ×2 (02:54→14:57)
[2018-08-14] MEDS: LACTATED RINGER'S 1,000 ML IV PRN ×2 (08:26→10:31)
[2018-08-14] MEDS ORDERED: DIPHENHYDRAMINE 50 MG INJ IV PRN (10:00)
[2018-08-14] MEDS ORDERED: ONDANSETRON 4 MG INJ IV PRN (10:00)
[2018-08-14] MEDS ORDERED: NALOXONE (0.4 MG/ML) INJ IV PRN (10:00)
--- NOTE | 2018-08-14 10:04 | PREAC ---
Date/Time of Note Date/Time of Note DATE: 08/14/18 TIME: 10:02 Anesthesia Eval and Record Evaluation Time Pre-Procedure Interview DATE: 08/14/18 TIME: 10:02 Age 23 Sex female NPO: 8 hrs Preoperative diagnosis IUP Planned procedure L&D Past Medical History Past Medical History: None Surgery & Anesthesia Issues No known issue Meds Anticoagulation: No Beta Migue within 24 hr: No Reason Beta Migue not given: Pt. not on B-Migue Reported Medications Vit-Fe Fumarate-FA* (Andrea Tablet*) 1 Tab Tablet, 1 TAB PO DAILY, TAB 03/17/14 Discontinued Reported Medications Nitrofurantoin Monohyd Macrocr* (Macrobid*) 100 Mg Capsr, 100 MG PO BID, CAP 07/30/18 Discontinued Scripts Hydrocodone/Acetaminophen ([place] 5-325 Tablet) 1 Each Tablet, 1 TAB PO Q6H PRN for PAIN, #7 TAB Prov:JOSE OG DO 07/31/18 Current Medications Lactated Ringer's 1,000 ml @ 125 mls/hr Q8H IV Last administered on 08/14/18at 02:54; Admin Dose 125 MLS/HR; Start 08/13/18 at 10:58 Butorphanol Tartrate (Stadol) 1 mg Q2H PRN IV .PAIN; Start 08/13/18 at 11:00 Butorphanol Tartrate (Stadol) 2 mg Q2H PRN IV .PAIN; Start 08/13/18 at 11:00 Lidocaine (Xylocaine 1% (Mpf)) 30 ml ONCE PRN INJ .EPISIOTOMY; Start 08/13/18 at 11:00 Oxytocin/Lactated Ringer's 500 ml @ 500 mls/hr ONCE POST IV ; Start 08/13/18 at 11:00 Oxytocin/Lactated Ringer's 500 ml @ 125 mls/hr POST IV ; Start 08/13/18 at 11:00 Ibuprofen (Motrin) 600 mg ONCE PRN PO .PAIN 1-5; Start 08/13/18 at 11:00 Lactated Ringer's 1,000 ml @ 2,000 mls/hr Q30M PRN IV .ANESTHESIA Last administered on 08/14/18at 08:26; Admin Dose 2,000 MLS/HR; Start 08/13/18 at 10:58 Oxytocin/Lactated Ringer's 500 ml @ 0 mls/hr ONCE PRN IV .VAGINAL BLEEDING; Start 08/13/18 at 11:00 Methylergonovine Maleate (Methergine) 0.2 mg ONCE PRN IM .VAGINAL BLEEDING; Start 08/13/18 at 11:00 Carboprost Tromethamine (Hemabate) 250 mcg ONCE PRN IM .VAGINAL BLEEDING; Start 08/13/18 at 11:00 Misoprostol (Cytotec) 1,000 mcg ONCE PRN MO .VAGINAL BLEEDING; Start 08/13/18 at 11:00 Oxytocin/Lactated Ringer's 500 ml @ 0 mls/hr Q0M IV ; Start 08/14/18 at 08:00 Meds reviewed: Yes Allergies Coded Allergies: No Known Allergy (Unverified , 07/30/18) Allergies Reviewed: Yes Labs/Studies Labs Reviewed: Reviewed by anesthesiologist Result Diagram: 08/13/18 1125 Laboratory Tests 08/13/18 11:25 Blood Bank Test 08/13/18 11:25 Antibody Screen NEGATIVE Blood Type O POSITIVE Rh Immune Globulin Candidate NO test: Positive Pre-procedure Exam Last vitals Vital Signs Date Temp Pulse Resp B/P (MAP) Pulse Ox O2 O2 Flow FiO2 Time Delivery Rate 08/13/18 98.3 98 18 125/67 97 11:37 (86) Airway: Adequate mouth opening, Adequate thyromental dist Mallampati: Mallampati II Teeth: Normal Lung: Normal Heart: Normal ASA Physical Status ASA physical status: 2 Emergency: None Planned Anesthetic Neuraxial: Epidural Planned Pain Management Epidural Pre-operative Attestations Prior to commencing anesthesia and surgery, the patient was re-evaluated, there was verification of: *The patient's identity *The results of appropriate recent lab work and preoperative vital signs *The above evaluation not changing prior to induction *Anesthetic plan, risk benefits, alternative and complications discussed with patient/family; questions answered; patient/family understands, accepts and wishes to proceed. MINA FARFAN MD Aug 14, 2018 10:03
[2018-08-14] MEDS ORDERED: ROPIVACAINE 0.2% 100 ML ONE (10:05)
[2018-08-14] MEDS ORDERED: ROPIVACAINE 0.2% 100ML BAG EPI SCH (10:05)
[2018-08-14] MEDS: OXYTOCIN 30 UNITS/LR 500 ML IV SCH (10:49)
[2018-08-14] MEDS: FENTAnyl 2MCG/ML-ROPIV 0.2% 100 ML BAG EPI SCH ×3 (10:51→20:39)
[2018-08-15] VITALS (14 sets, daily range): BP systolic 107–157; BP diastolic 59–88; PULSE 74–91; RESP 18–20
[2018-08-15] MEDS: LACTATED RINGER'S 1,000 ML IV SCH ×2 (02:58→03:29)
[2018-08-15] MEDS: FENTAnyl 2MCG/ML-ROPIV 0.2% 100 ML BAG EPI SCH ×2 (03:30→08:07)
[2018-08-15] MEDS: OXYTOCIN 30 UNITS/LR 500 ML IV SCH (03:31)
--- NOTE | 2018-08-15 09:01 | LDN ---
Date/Time of Note Date/Time of Note DATE: 08/15/18 TIME: 08:59 Delivery Summary Weeks of Gestation 40+ weeks Placenta Delivered: Spontaneously Meconium: Light Episiotomy: No Laceration repair: Second degree perineal laceration repaired with 3-0 Vicryl. Anesthesia type: Epidural Estimated blood loss: 300 Sponge & Needle done & correct: Yes All needle counts correct: Yes Any foreign bodies felt in the: No Infant Delivery Information Sex Sex: male Apgars 1 Minute: 8 5 Minute: 9 Suctioning Nose & mouth suctioned at marlene: No Delee suction performed: No Umbilical Cord Umbilical cord with: 3 Vessels Cord presentations: no nuchal cord Cord Blood was obtained: Yes Mother & Baby Disposition Disposition Mom & Baby to Maternity; Good: Yes SAMARA MA MD Aug 15, 2018 09:01
[2018-08-15] MEDS ORDERED: CARBOPROST 250 MCG INJ IM PRN (12:30)
[2018-08-15] MEDS ORDERED: MISOPROSTOL 200 MCG TAB PR PRN (12:30)
[2018-08-15] MEDS ORDERED: ACETAMINOPHEN 325 MG TAB PO PRN (12:30)
[2018-08-15] MEDS ORDERED: OXYTOCIN 30 UNITS/LR 500 ML IV PRN (12:30)
[2018-08-15] MEDS ORDERED: BENZOCAINE 20% 56 ML SPRAY TOP PRN (12:30)
[2018-08-15] MEDS ORDERED: HYDROCODONE/APAP (5/325) TAB PO PRN (12:30)
[2018-08-15] MEDS ORDERED: DIBUCAINE 1% 30 GM OINT TOP PRN (12:30)
[2018-08-15] MEDS ORDERED: METHYLERGONOVINE 0.2 MG INJ IM PRN (12:30)
[2018-08-15] MEDS ORDERED: WITCH HAZEL/GLYCERIN PAD PR PRN (12:30)
[2018-08-15] MEDS: LACTATED RINGER'S 1,000 ML IV* SCH ×2 (14:37→20:09)
[2018-08-15] MEDS: IBUPROFEN 600 MG TAB PO SCH ×2 (18:04→23:50)
[2018-08-15] MEDS: SENNA/DOCUSATE NA (8.6MG/50MG) TAB PO SCH (21:22)
[2018-08-16] MEDS: LACTATED RINGER'S 1,000 ML IV* SCH ×2 (03:20→12:09)
[2018-08-16 03:30] VITALS: BP 103/55; PULSE 70; RESP 19
[2018-08-16] MEDS: IBUPROFEN 600 MG TAB PO SCH ×3 (05:34→17:08)
[2018-08-16 08:00] VITALS: BP 109/61; PULSE 82; RESP 17
[2018-08-16] MEDS: SENNA/DOCUSATE NA (8.6MG/50MG) TAB PO SCH ×2 (10:04→21:53)
--- NOTE | 2018-08-16 13:07 | PAC ---
Date/Time of Note Date/Time of Note DATE: 08/16/18 TIME: 13:07 Post-Anesthesia Notes Post-Anesthesia Note Last documented vital signs Vital Signs Date Temp Pulse Resp B/P (MAP) Pulse Ox O2 O2 Flow FiO2 Time Delivery Rate 08/16/18 97.4 82 17 109/61 Room Air 08:00 (77) 08/13/18 97 11:37 Activity: WNL Respiratory function: WNL Cardiovascular function: WNL Mental status: Baseline Pain reasonably controlled: Yes Hydration appropriate: Yes Nausea/Vomiting absent: Yes Comments BP:112/56, P:78, Spo2:100%, T:98,8 MINA FARFAN MD Aug 16, 2018 13:07
[2018-08-16 15:50] VITALS: BP 121/59; PULSE 84; RESP 18
[2018-08-16 20:00] VITALS: BP 126/57; PULSE 83; RESP 19
--- NOTE | 2018-08-16 20:05 | DS ---
Date/Time of Note Date/Time of Note DATE: 08/16/18 TIME: 20:04 Obstetrical Discharge Record Final Diagnosis Final Diagnosis: Term delivered Vaginal Delivery Obstetrical Delivery: Spontaneous Complications Induction: Yes Condition on Discharge Physical Assessment Voiding: Yes Bowel Movement: Yes Breast: Soft, non-tender, Filling Fundus: Firm Calf Tenderness: No Patient Condition: Stable SAMARA MA MD Aug 16, 2018 20:05
[2018-08-17] MEDS: IBUPROFEN 600 MG TAB PO SCH ×2 (00:43→05:23)
[2018-08-17 04:00] VITALS: BP 119/64; PULSE 82; RESP 19
[2018-08-17] MEDS ORDERED: DIPHTH/TET/ACEL PERTUSS (ADULT) 0.5 ML VIAL IM* ONE (09:00)
[2018-08-17] MEDS: SENNA/DOCUSATE NA (8.6MG/50MG) TAB PO SCH (09:04)
== END 2018-08-17 11:50 | disposition home or self-care (01) | DRG 807 ==
LOC: L-D 10:31 → PP1 08-15 14:27
PROVIDERS: ADMIT Obstetrics & Gynecology; ATTEND Obstetrics & Gynecology
PROC: 3E033VJ Introduction of Other Hormone into Peripheral Vein, Percutaneous Approach (ICD-10-PCS; 2018-08-13)
PROC: 10E0XZZ Delivery of Products of Conception, External Approach (ICD-10-PCS; principal; 2018-08-15)
PROC: 0KQM0ZZ Repair Perineum Muscle, Open Approach (ICD-10-PCS; 2018-08-15)
DX: O70.1 Second degree perineal laceration during delivery (principal); Z37.0 Single live birth; Z3A.40 40 weeks gestation of pregnancy
CPT/HCPCS: 62319; 85025; 85610; 85730; 86592; 86850; 86900; 86901; 87340; 99464; J2210; J2590; J2795; J3010; J7120